=== PATIENT | female | born 1935 | race Two or more races ===

== ENCOUNTER 2017-06-11 20:14 | Emergency (ER) | payer MEDICARE, OTHER ==
[~2017-06-11] VITALS: Ht 154.9 cm; Wt 52.2 kg
[~2017-06-11 20:14] MED LIST: CHOL200026 PO; DIAZ2TAB PO; FURO20TA4 PO; LEVO137T24 PO; LISI1TAB9 PO; MULT1TAB73 PO; OMEP40CA37 PO; POTA10CA43 PO; TOLT4CAP PO
--- NOTE | 2017-06-11 20:14 | NUR ---
ANXIOUS AND PARANOID. DENIES CP OR SOB. A/OX3 VSS. ATTEMPTING TO CALM PATIENT DOWN. WILL CONTNUE TO MONITOR FOR ANY CHANGES DURING THE SHIFT.
--- NOTE | 2017-06-11 20:20 | NUR ---
ER MD PHILLIPS AT BEDSIDE
[2017-06-11 20:48] LABS: BASOPHILS % (AUTO) 0.7 % (0.0-2.0); EOSINOPHILS # (AUTO) 0.1 /CMM (0.0-0.7); EOSINOPHILS % (AUTO) 0.8 % (0.0-6.0); HEMATOCRIT 37 % (33-45); HEMOGLOBIN 12.7 g/dL (11.5-14.8); LYMPHOCYTES # (AUTO) 1.5 /CMM (0.8-4.8); LYMPHOCYTES % (AUTO) 22.2 % (20.0-44.0); MEAN CORPUSCULAR HEMOGLOBIN 31 PG (26.0-33.0); MEAN CORPUSCULAR HGB CONC 35 g/dl (31.0-36.0); MEAN CORPUSCULAR VOLUME 89 fL (82-100); MONOCYTES # (AUTO) 0.5 /CMM (0.1-1.30); MONOCYTES % (AUTO) 7.7 % (2.0-12.0); NEUTROPHILS # (AUTO) 4.6 /CMM (1.8-8.9); NEUTROPHILS % (AUTO) 68.6 % (43.0-81.0); PLATELET COUNT (AUTO) 260 /CMM (150-450); RDW COEFFICIENT OF VARIATION 12.6 (11.5-15.0); RED BLOOD CELL COUNT(AUTO) 4.09 MIL/uL (4.0-5.2); WHITE BLOOD COUNT (AUTO) 6.7 K/uL (4.3-11.0)
[2017-06-11 20:55] LABS: APPEARANCE,URINE Clear (CLEAR); BILIRUBIN,URINE Negative (NEGATIVE); BLOOD, URINE Trace-intact Ery/uL (NEGATIVE); COLOR,URINE Yellow (YELLOW); KETONES,URINE 15 (NEGATIVE); LEUKOCYTE ESTERASE ,URINE Negative (NEGATIVE); NITRITE, URINE Negative (NEGATIVE); PROTEIN,URINE Negative (NEGATIVE); UGLUCOSE Negative (NEGATIVE); UROBILINOGEN,URINE 0.2 EU/dL (0.2)
[2017-06-11] MEDS ORDERED: ALPRAZOLAM 0.5 MG TABLET PO ONE (21:00)
[2017-06-11] MEDS ORDERED: ALPRAZOLAM 0.5 MG TABLET ONE (21:03)
[2017-06-11 21:09] LABS: BACTERIA,URINE Rare /HPF (None Seen); MUCUS,URINE Few /LPF (None Seen); RBC,URINE 3-4/HPF /HPF (0-2); SQUAMOUS EPITHELIAL CELL,UR Few /HPF (None Seen); WBC,URINE 0-2 /HPF (0-3)
--- NOTE | 2017-06-11 21:09 | NUR ---
PT STARTNG TO GET AGITATED SO XANAX WAS ORDERED
[2017-06-11 21:12] LABS: ALANINE AMINOTRANSFERASE 15 U/L (12-78); ALCOHOL, BLOOD < 3 mg/dL (0-0); ALKALINE PHOSPHATASE 71 U/L (46-116); ASPARTATE AMINOTRANSFERASE 18 U/L (15-37); BILIRUBIN,DIRECT 0.2 mg/dL (0.0-0.2); BILIRUBIN,TOTAL 0.5 mg/dL (0.2-1.0); CALCIUM, SERUM 9.3 mg/dL (8.5-10.1); CARBON DIOXIDE 24 mmol/L (21-32); CHLORIDE 99 mmol/L (98-107); CREATININE 0.5 mg/dL (0.6-1.3); GLUCOSE 111 mg/dL (74-106); POTASSIUM 3.4 mmol/L (3.5-5.1); SODIUM SERUM 135 mmol/L (136-145); TOTAL PROTEIN, SERUM 7.3 g/dL (6.4-8.2); UREA NITROGEN, BLOOD 13 mg/dL (7-18)
[2017-06-11 21:20] LABS: ACETAMINOPHEN 0 ug/ml (10-30)
[2017-06-11] MEDS ORDERED: POTASSIUM CHLORIDE 20 MEQ TAB.PRT.SR PO ONE ×2 (21:27→21:30)
--- NOTE | 2017-06-11 21:28 | NUR ---
REQUESTED [facility] FOR TRANSPORT BACK TO [facility], ETA 107 MIN.
--- NOTE | 2017-06-11 22:19 | NUR ---
[facility] NEW ETA NO LATER THAN [id number]
--- NOTE | 2017-06-12 00:02 | NUR ---
REPORT GIVEN TO EMT
[2017-06-12 00:06] VITALS: BP 143/70
== END 2017-06-12 00:06 ==
LOC: ER 20:17
DX: F41.0 Panic disorder [episodic paroxysmal anxiety] (principal); E87.6 Hypokalemia; E03.9 Hypothyroidism, unspecified; F32.9 Major depressive disorder, single episode, unspecified; G47.00 Insomnia, unspecified; I10 Essential (primary) hypertension; K21.9 Gastro-esophageal reflux disease without esophagitis; M41.9 Scoliosis, unspecified; G89.4 Chronic pain syndrome; N32.81 Overactive bladder; Z88.0 Allergy status to penicillin; Z96.653 Presence of artificial knee joint, bilateral
CPT/HCPCS: 36415; 80048-TC; 80076-TC; 80305; 81000-TC; 85025-TC; A4606; G0480; Z7610

== ENCOUNTER 2020-10-02 03:24 | Inpatient (IN) | payer MEDICARE, OTHER ==
[~2020-10-02] VITALS: Ht 147.3 cm; Wt 72.6 kg
[~2020-10-02 03:24] MED LIST changes: +LISI1TAB32 PO; -LISI1TAB9 PO; +MULT-754 PO; -MULT1TAB73 PO; +OMEP40CA21 PO; -OMEP40CA37 PO
--- NOTE | 2020-10-02 03:35 | NUR ---
pt bibra c/o syncopal episode while having diarrhea. Pt aaox4 breathing evenly and unlabored. Pt is hard of hearing. Pt states that she has been dry heaving due to "nerves" and the diarrhea. Pt attached to monitor and pox. MD at bedside. Pt given blanket and call ligth within reach
[2020-10-02] MEDS ORDERED: ONDANSETRON HCL/PF 4 MG/2 ML VIAL ONE (03:43)
--- NOTE | 2020-10-02 03:51 | NUR ---
blood drawn and sent to lab
[2020-10-02 03:52] LABS: BASOPHILS # (AUTO) 0.1 K/uL (0.0-0.2); BASOPHILS % (AUTO) 0.7 % (0.0-2.0); EOSINOPHILS % (AUTO) 1.2 % (0.0-6.0); HEMATOCRIT 44 % (33-45); HEMOGLOBIN 14.2 g/dL (11.5-14.8); LYMPHOCYTES # (AUTO) 1.6 K/uL (0.8-4.8); LYMPHOCYTES % (AUTO) 13.7 % (20.0-44.0); MEAN CORPUSCULAR HGB CONC 33 g/dl (31.0-36.0); MEAN CORPUSCULAR VOLUME 89 fL (82-100); MONOCYTES # (AUTO) 0.8 K/uL (0.1-1.30); MONOCYTES % (AUTO) 6.9 % (2.0-12.0); NEUTROPHILS # (AUTO) 9.1 K/uL (1.8-8.9); NEUTROPHILS % (AUTO) 77.5 % (43.0-81.0); PLATELET COUNT (AUTO) 269 K/uL (150-450); RED BLOOD CELL COUNT(AUTO) 4.89 MIL/uL (4.0-5.2); WHITE BLOOD COUNT (AUTO) 11.7 K/uL (4.3-11.0)
--- NOTE | 2020-10-02 03:57 | NUR ---
XRAY AT BEDSIDE
[2020-10-02] MEDS ORDERED: IV NS 0.9% 500 ML BAG IV ONE (04:00)
[2020-10-02] MEDS ORDERED: ONDANSETRON HCL/PF 4 MG/2 ML VIAL IVP ONE (04:00)
[2020-10-02 04:01] LABS: CALCIUM, SERUM 9.5 mg/dL (8.5-10.1); CARBON DIOXIDE 25 mmol/L (21-32); CHLORIDE 103 mmol/L (98-107); CREATININE 0.9 mg/dL (0.6-1.3); GLUCOSE 135 mg/dL (74-106); POTASSIUM 3.6 mmol/L (3.5-5.1); SODIUM SERUM 137 mmol/L (136-145); UREA NITROGEN, BLOOD 17 mg/dL (7-18)
--- NOTE | 2020-10-02 04:03 | NUR ---
COVID SWAB SENT TO LAB
[2020-10-02 04:06] LABS: ALANINE AMINOTRANSFERASE 18 U/L (12-78); ALBUMIN 3.7 g/dL (3.4-5.0); ALKALINE PHOSPHATASE 90 U/L (46-116); ASPARTATE AMINOTRANSFERASE 17 U/L (15-37); BILIRUBIN,DIRECT 0.1 mg/dL (0.0-0.2); BILIRUBIN,TOTAL 0.4 mg/dL (0.2-1.0); TOTAL PROTEIN, SERUM 7.1 g/dL (6.4-8.2)
[2020-10-02] MEDS ORDERED: LORAZEPAM INJ 2 MG/ML VIAL ONE (04:13)
[2020-10-02] MEDS ORDERED: HYDROMORPHONE 1 MG/1 ML DISP.SYRIN ONE (04:13)
--- NOTE | 2020-10-02 04:24 | NUR ---
PLACED ON 2L O2 FOR COMFORT
[2020-10-02] MEDS ORDERED: HYDROMORPHONE 1 MG/1 ML DISP.SYRIN IV ONE (04:30)
[2020-10-02] MEDS ORDERED: LORAZEPAM INJ 2 MG/ML VIAL IV ONE (04:30)
--- NOTE | 2020-10-02 05:41 | NUR ---
ATTEMPTED TO GIVE REPORT, RN BUSY. TOLD TO CALL IN FIVE MIN
--- NOTE | 2020-10-02 05:44 | NUR ---
GAVE REPORT TO ELVIRA BORDEN FOR [facility]
[2020-10-02] MEDS ORDERED: ONDANSETRON HCL/PF 4 MG/2 ML VIAL IVP PRN (06:00)
[2020-10-02] MEDS ORDERED: MAG HYDROX/AL HYDROX/SIMETH 30 ML UDC PO PRN (06:00)
[2020-10-02] MEDS ORDERED: MAGNESIUM HYDROXIDE 30 ML UDC PO PRN (06:00)
[2020-10-02] MEDS ORDERED: Z GUARD REMEDY 2 OZ OINT TP PRN (06:00)
--- NOTE | 2020-10-02 06:10 | NUR ---
RETAIL SALES REPRESENTATIVE NOTES PATIENT ARRIVED ON FLOOR, ALERT/ORIENTED X 3, PATIENT ABLE TO MAKE NEEDS KNOWN, NO REPORTS OF PAIN AT THIS TIME. PT STABLE ON 2L OF OXYGEN VIA NASAL CANNULA, NO S/S OF DISTRESS OR SOB NOTED, BREATHING EVEN AND UNLABORED. RIGHT FOREARM #20G IV ACCESS INTACT AND FLUSHING WELL. PATIENT HAS NO BELONGINGS. PHOTOS OF SKIN ISSUES TAKEN. ORIENTED PATIENT TO ROOM AND HOW TO USE CALL LIGHT. SAFETY MEASURES IN PLACE, CALL LIGHT WITHIN REACH, BED LOCKED IN LOWEST POSITION. WILL ENDORSE TO DAY SHIFT NURSE FOR CONTINUITY OF CARE
[2020-10-02 06:40] VITALS: BP 146/68
[2020-10-02 08:00] VITALS: BP 128/61
--- NOTE | 2020-10-02 08:00 | NUR ---
tele industrial insulator: admission admitted this 85 year old female pt from [facility] with dx: syncope. pt awake, a/ox4; little shell tribe, but no hearing aid. tele sr. no c/o pain or any discomfort. oriented to room and surroundings. in no apparent distress noted. instructed to call for assistance. will continue to monitor.
[2020-10-02] MEDS: IV NS 0.9% 1,000 ML IV PRN ×2 (09:59→23:58)
[2020-10-02] MEDS: PANTOPRAZOLE 40 MG TABLET.DR PO SCH (10:01)
--- NOTE | 2020-10-02 10:44 | NUR ---
WOUND CARE CONSULT: PT PRESENTS WITH REDNESS/RASH TO GROIN FOLDS AND BREASTFOLDS, PRESENT ON ADMISSION. RECOMMENDATIONS MADE FOR SKIN PROTECTION. DISCUSSED WITH NURSING STAFF. MD IN AGREEMENT WITH PLAN OF CARE.
[2020-10-02] MEDS ORDERED: LISI20TA30 PO (11:27)
[2020-10-02 12:00] VITALS: BP 136/60
--- NOTE | 2020-10-02 13:05 | NUR ---
m/s software developer intern: notes urine collected via clean catch. lab called spoke to deirdre harley) to shredder picker specimen.
--- NOTE | 2020-10-02 13:20 | NUR ---
tele oil seal assembler: cardio consult seen and examined by dr. bunch at this time and stated, "i will clear her for discharge." pt aware and request for ambulance to pick her up when she gets discharge.
[2020-10-02] MEDS: ACETAMINOPHEN 325 MG TABLET PO PRN ×2 (14:14→20:33)
[2020-10-02 14:53] LABS: BILIRUBIN,URINE NEGATIVE (NEGATIVE); COLOR,URINE YELLOW (YELLOW); LEUKOCYTE ESTERASE ,URINE NEGATIVE (NEGATIVE); NITRITE, URINE NEGATIVE (NEGATIVE); PROTEIN,URINE NEGATIVE (NEGATIVE); UGLUCOSE NEGATIVE (NEGATIVE); UROBILINOGEN,URINE 0.2 EU/dL (0.2)
[2020-10-02 16:00] VITALS: BP 137/74
--- NOTE | 2020-10-02 16:00 | NUR ---
tele fire inspector: notes resting comfortable at this time. pt aware of d'c planning back to [facility] tomorrow per shellfish bed worker.
[2020-10-02] MEDS ORDERED: DIAZEPAM 2 MG TABLET PO SCH (17:00)
[2020-10-02] MEDS: CLOTRIMAZOLE 1% 15 GM TUBE TP SCH (17:26)
--- NOTE | 2020-10-02 18:00 | NUR ---
tele denitrator: notes still having dinner at this time. hob elevated. instructed to call for assistance. will continue to monitor.
--- NOTE | 2020-10-02 19:15 | NUR ---
m/s mexican food machine tender: notes report given to song (rn) for continuity of care.
--- NOTE | 2020-10-02 19:30 | NUR ---
LITIGATOR OPENING NOTES RECEIVED PATIENT IN BED, AWAKE, A&O X 3-4, ABLE TO MAKE NEEDS KNOWN. WITH O2 VIA NC AT 2LPM SATURATING WELL AT 96%, NO SOB NOTED. ON TELE MONITOR SHOWING NSR WITH PAC'S HR AT 70'S. IVF OF NS 1L X 75CC/HR INFUSING WELL OVER PATIENT'S RFA G#20. NO REDNESS, NO INFILTRATION NOTED. SAFETY PRECAUTIONS OBSERVED: BED ON LOWEST LOCKED POSITION, SIDE RAILS UP X 2, KEPT CALL LIGHT WITHIN EASY REACH. WILL CONTINUE TO MONITOR PATIENT'S CURRENT STATUS.
[2020-10-02 20:00] VITALS: BP 118/55
[2020-10-03] VITALS: BP 138/65
[2020-10-03] MEDS: ACETAMINOPHEN 325 MG TABLET PO PRN ×3 (02:52→14:58)
--- NOTE | 2020-10-03 03:05 | NUR ---
RN NOTES PATIENT HAS C/O PAIN ON THE BACK WITH PAIN SCALE OF 6/10. DUE TYLENOL PRN GIVEN ORDERED. WILL CONTINUE TO MONITOR PATIENT'S PAIN STATUS.
[2020-10-03 04:00] VITALS: BP 138/69
[2020-10-03] MEDS ORDERED: LEVOTHYROXINE SODIUM 25 MCG TABLET PO SCH (06:00)
[2020-10-03] MEDS ORDERED: LEVOTHYROXINE SODIUM 137 MCG TABLET PO SCH (06:00)
[2020-10-03 06:24] LABS: BASOPHILS # (AUTO) 0.1 K/uL (0.0-0.2); BASOPHILS % (AUTO) 0.9 % (0.0-2.0); EOSINOPHILS % (AUTO) 1.8 % (0.0-6.0); HEMATOCRIT 35 % (33-45); LYMPHOCYTES # (AUTO) 1.2 K/uL (0.8-4.8); LYMPHOCYTES % (AUTO) 19.5 % (20.0-44.0); MEAN CORPUSCULAR HGB CONC 34 g/dl (31.0-36.0); MEAN CORPUSCULAR VOLUME 88 fL (82-100); MONOCYTES # (AUTO) 0.6 K/uL (0.1-1.30); MONOCYTES % (AUTO) 10.1 % (2.0-12.0); NEUTROPHILS # (AUTO) 4.3 K/uL (1.8-8.9); NEUTROPHILS % (AUTO) 67.7 % (43.0-81.0); PLATELET COUNT (AUTO) 198 K/uL (150-450); RED BLOOD CELL COUNT(AUTO) 4.01 MIL/uL (4.0-5.2); WHITE BLOOD COUNT (AUTO) 6.4 K/uL (4.3-11.0)
--- NOTE | 2020-10-03 06:27 | NUR ---
RESOURCING CONSULTANT CLOSING NOTES PATIENT IN BED, AWAKE, A&O X 3-4, O2 VIA NC AT 2LPM SATURATING WELL AT 96%, NO SOB NOTED. ON TELE MONITOR SHOWING NSR WITH PAC'S HR AT 60'S. IVF OF NS 1L X 75CC/HR INFUSING WELL OVER PATIENT'S RFA G#20. NO REDNESS, NO INFILTRATION NOTED. SAFETY PRECAUTIONS OBSERVED AND MAINTAINED DURING THE SHIFT: BED ON LOWEST LOCKED POSITION, SIDE RAILS UP X 2, KEPT CALL LIGHT WITHIN EASY REACH. ALL NEEDS ATTENDED AND MET. WILL ENDORSE TO MORNING SHIFT NURSE FOR [facility].
[2020-10-03 06:50] LABS: ALBUMIN 2.8 g/dL (3.4-5.0); BILIRUBIN,TOTAL 0.3 mg/dL (0.2-1.0); CALCIUM, SERUM 8.4 mg/dL (8.5-10.1); CREATININE 0.6 mg/dL (0.6-1.3); MAGNESIUM 1.8 mg/dL (1.8-2.4); PHOSPHORUS 3.7 mg/dL (2.5-4.9); TOTAL PROTEIN, SERUM 5.7 g/dL (6.4-8.2)
[2020-10-03 07:14] LABS: THYROID STIMULATING HORMONE 0.514 uIU/mL (0.358-3.74)
--- NOTE | 2020-10-03 07:55 | NUR ---
MS RN OPENING NOTE PATIENT IS IN BED RESTING, PATIENT IS IN NO ACUTE DISTRESS, PATIENT IS ON ROOM AIR, SATURATING WELL. PATIENT IS FALL RISK, SAFETY PRECAUTIONS ARE ON, BED IS LOCKED IN THE LOWEST POSITION WITH SIDE RAILS UP, CALL LIGHT WITHIN REACH, WILL CONTINUE TO MONITOR CLOSELY.
[2020-10-03 08:00] VITALS: BP 138/57
[2020-10-03] MEDS: PANTOPRAZOLE 40 MG TABLET.DR PO SCH (08:58)
[2020-10-03] MEDS: CLOTRIMAZOLE 1% 15 GM TUBE TP SCH (08:59)
[2020-10-03] MEDS ORDERED: LISINOPRIL (20MG) 20 MG TABLET PO SCH (09:00)
[2020-10-03] MEDS ORDERED: TOLTERODINE 2 MG CAP.SR PO SCH (09:00)
[2020-10-03] MEDS ORDERED: MULTIVITAMINS,THERAGRAN 1 UDTAB TABLET PO SCH (09:00)
[2020-10-03] MEDS ORDERED: HYDROCHLOROTHIAZIDE 25 MG TABLET PO SCH (09:00)
[2020-10-03] MEDS ORDERED: Medication Not On Formulary EA (Omeprazole 1 CAP) PO SCH (09:00)
[2020-10-03 15:47] VITALS: BP 139/59
--- NOTE | 2020-10-03 16:25 | NUR ---
MS SLICE PLUG CUTTER OPERATOR HELPER NOTE PATIENT IS IN NO ACUTE DISTRESS. PATIENT IS MEDICALLY STABLE TO BE DISCHARGED. PATIENTS NEEDS WERE ADDRESSED DURING THE STAY. DISCHARGE INSTRUCTIONS PROVIDED, PATIENT VERBALIZED UNDERSTANDING. BELONGING LIST WENT OVER AND SIGNED. PATIENT IV LINE AND ID BAND REMOVED. PATIENT WAS TRANSFERRED BACK TO [facility] BY TWO TUB ATTENDANT. MD IS AWARE OF DISCHARGE.
== END 2020-10-03 16:25 | DRG 74 ==
LOC: ER 03:27 → TELE 05:30
PROVIDERS: ADMIT Nurse Practitioner Acute Care
DX: G90.8 Other disorders of autonomic nervous system (principal); F41.9 Anxiety disorder, unspecified; I10 Essential (primary) hypertension; E03.9 Hypothyroidism, unspecified; K21.9 Gastro-esophageal reflux disease without esophagitis; Z88.0 Allergy status to penicillin; Z79.899 Other long term (current) drug therapy; D72.829 Elevated white blood cell count, unspecified; W19.XXXA Unspecified fall, initial encounter; Y92.9 Unspecified place or not applicable; F03.90 Unspecified dementia, unspecified severity, without behavioral disturbance, psychotic disturbance, mood disturbance, and anxiety; G89.29 Other chronic pain; I35.1 Nonrheumatic aortic (valve) insufficiency; M41.9 Scoliosis, unspecified; Z79.890 Hormone replacement therapy
CPT/HCPCS: 36415; 71045-TC; 80048-TC; 80053-TC; 80061-TC; 80076-TC; 82962-TC; 83735-TC; 84100-TC; 84443-TC; 84484-TC; 85025-TC; 87081-TC; 87086-TC; 93307-TC; 97112-TC; 97116-TC; 97530-TC; C9803; G0378; J1170; J2060; J2405; J7030; J7040